=== PATIENT | male | born 2000 | race Two or more races ===

== ENCOUNTER 2025-06-19 14:48 | Emergency (ER) | payer OTHER ==
[~2025-06-19] VITALS: Ht 172.7 cm; Wt 91.8 kg
[2025-06-19 15:11] VITALS: BP 109/84; PULSE 60; RESP 16; TEMP 98.1; O2SAT 100
[2025-06-19 15:36] LABS: PLATELET COUNT (AUTO) 231 K/uL (150-450); RED BLOOD CELL COUNT(AUTO) 5.07 MIL/uL (4.50-5.90); RED CELL DISTRIBUTION WIDTH 12.9 % (11.5-14.5); WHITE BLOOD COUNT (AUTO) 7.8 K/uL (4.5-11.0)
[2025-06-19 15:44] LABS: CALCIUM, TOTAL 8.6 mg/dL (8.8-10.5); CREATININE 0.71 mg/dL (0.60-1.30); GLOMERULAR FILTR. RATE CALC > 60 mL/min (>60); GLUCOSE,RANDOM 100 mg/dL (70-110); SODIUM SERUM 140 mmol/L (136-145); UREA NITROGEN, BLOOD 10 mg/dL (7-18)
[2025-06-19 15:55] LABS: TROPONIN I-HIGH SENSITIVITY 11 ng/L (<76)
== END 2025-06-19 18:16 ==
LOC: EMS 14:48
DX: R00.1 Bradycardia, unspecified (principal); F15.90 Other stimulant use, unspecified, uncomplicated; F10.90 Alcohol use, unspecified, uncomplicated; Y90.9 Presence of alcohol in blood, level not specified
CPT/HCPCS: 80048; 83735; 84484; 85025; 93005; 99284